=== PATIENT | male | born 1935 | race Caucasian/White ===

== ENCOUNTER → 2018-02-22 08:34 | Outpatient (BNVA) | payer MEDICARE, SELFPAY | PROVIDERS: PCP Nurse Practitioner Family; Visit Provider Nurse Practitioner Adult Health | DX: G30.9 Alzheimer's disease, unspecified (principal) | CPT/HCPCS: 99213 ==

== ENCOUNTER 2018-03-18 11:01 | Emergency (ER) | payer MEDICARE, SELFPAY ==
[2018-03-18] VITALS (40 sets, daily range): BP systolic 114–146; BP diastolic 63–77; PULSE 57–75; RESP 9–40; TEMP 36.4; O2SAT 94–98
--- NOTE | 2018-03-18 11:17 | W.ED.GENAD ---
Discharge Plan Disposition Patient Disposition: HOME Condition: Stable Discharge Details Chief Complaint: Chest Pain Clinical Impression: Chest pain Primary Care Provider: Magali Jones ED Provider: Bing Song Home Meds and New Rx's Prescriptions: Continue lansoprazole [Prevacid] 15 mg capsule,delayed release(DR/EC) 15 mg PO DAILY RF: 0 calcium carbonate [Tums] 200 mg calcium (500 mg) tablet,chewable 200 mg PO BID RF: 0 turmeric (bulk) [Curcumin] 95 % powder MC RF: 0 lansoprazole [Prevacid] 15 MG capsule,delayed release(DR/EC) 15 mg PO DAILY RF: 0 multivitamin [Daily Multi-Vitamin] 1 EACH tablet 1 ea PO DAILY RF: 0 donepezil 10 MG tablet 10 mg PO DAILY Qty: 90 RF: 3 Varicella-Zoster Ge/As01b/Pf [Shingrix Vial Kit] 50 MCG INJ 50 mcg IM ONCE Qty: 1 RF: 1 aspirin [Aspir-81] 81 MG tablet,delayed release (DR/EC) 81 mg PO DAILY RF: 0 glucosamine freeman 2KCl-chondroit [Glucosamine Sulf-Chondroitin] 1 EACH capsule 1 ea PO DAILY RF: 0 saw palmto frt xtr-zinc [place] [Saw [place] Extract (w-zinc)] 1 EACH capsule 450 ea PO DAILY RF: 0 acetaminophen [Pain Relief Regular Strength] 325 MG tablet 650 mg PO PRN PRNRF: 0 lansoprazole [Prevacid] 15 mg Capsule,Delayed Release(Dr/Ec) 15 mg PO DAILY RF: 0 Discharge Instructions Instructions: Chest Pain (ED) Additional Instructions: Please keep appointment for stress test on Wednesday at 1:45PM. You have follow up to discuss results with primary care on Wednesday at 9:30AM. Please avoid physical exertion, no shoveling. If you develop increased pain, shortness of breath, difficulty breathing, nausea/vomiting or other new/worsening symptoms please seek care immediately once again. PLease call your director [employer] to schedule follow up as soon as possible. Referrals: Magali Jones, [employer] [Primary Care Provider] - Medical Decision Making Patient is an 82 year old male, accompanied by his , with c/c of chest pressure. He reprots that pressure is mild, has been constant for the past 2 weeks and worsens with exertion. REprots that he presents today as my caught me. His reports that she noted him to be pressing on his chest while he was shoveling, this was approximately 1 hour prior to arrival. He states that his discomfort increases with exertion but that his discomfort is still very mild even during this time, feels like a tennis ball hit my chest. Patient has hx of sick sinus syndrome, has pacer in place. Also has history of dementia, ZHOU, skin malignancy, gerd, alzheimers. He takes daily ASA 81mg, reports he took this this morning. reports that he had not voiced his discomfort prior to today. 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 He denies any associated symptoms, even with exertion, including numbness, tingling, lightheadedness, nausea or radiating discomfort. Denies back pain. Exam is significant for bruising to the right side of his chest, patient denies any trauma. No pain with palpation of the chest wall. Lungs are clear. RRR, no murmurs, rubs or gallops noted. He denies history of CAD. Plan to obtain EKG, lbas, cxr. EKG reviewed by Dr. Stark. NSR rate 75. Pacer spikes noted. She advises no acute ischemic changes noted. Compared to previous. Labs without significant abnormality. Troponin <0.02. CXR reviewed by myself with no acute process noted, was able to compare to previous. Discussed with the patient and his . His symptoms are difficult to attribute completely to cardiac etiology as he reports it is so constant even with rest. However, I am concerned that his dementia may be making history difficult to obtain. For this reason, and that his pain did spike approximately 1 hour prior to arrival, we will perform a repeat troponin. His reports he has had stress test previousy but is unsure when this occurred. Typically is seen by cardiology at [facility], will call and consult with them. Was unable to speak with the patient's director [employer]. However, I did speak with Dr. Mendez who is covering for the cardiology group at [facility] where patient typically receives his care. He advised the patient is low risk given his history. Advised that with the unchanged EKG, normal troponin, he did not recommend a second troponin. We discussed admission and at this point, he did not advise this is necessary. He is also questioning with the patient's dementia and age if a stress test is necessary if the patient would want to undergo intervention. I will discuss this further with the patient. By the heart score, patient is considered low risk. While director [employer] did not advise repeat troponin, I feel that with his increase in symptoms this is appropriate and will keep this order. Discussed cardiology concerns with the patient. He advised that he would undergo surgical intervention. I also discussed this with the who is in agreement with this. I have therefore asked our membership secretary to schedule a outpatient stress test for Wednesday. Second troponin remains less than 0.02. I discussed these findings with the patient and his . They live quite local and his assures me that they are able to return immediately with any new or worsening symptoms. They are given strict return precautions. Patient has a stress test scheduled for Wednesday. I also contacted the primary care who will see the patient Wednesday. and patient are comfortable with this plan, are able to follow precautions. They will return with worsening symptoms. All of their questions adn concerns were addressed, they are in agreement with this plan. [facility] General Mode of arrival: ambulatory. Date/Time Provider Initiated Documentation: 03/18/18 11:03. Limitations to Documentation: no limitations. Information obtained by: patient and family. History of Present Illness 82 year old M presents to the emergency department with the chief complaint of chest pressure, described as mild, Quality is described as constant, and is localized to the chest. Patient reports no radiation; denies radiation to back, neck and extremity. Patient started experiencing this week(s) (2) and it has been constant. No relieving factors improve symptom(s), Movement worsens symptoms (worse with exertion such as long walks or shoveling) . Patient notes chest pain; denies confusion, cough, diaphoresis, fever/chills, headaches, nausea/vomiting, rash, shortness of breath and syncope. Patient did receive the following treatments prior to arrival, none Related Data Home Medications Medication Instructions Recorded Confirmed aspirin [Aspir-81] 81 mg PO DAILY 07/04/12 03/18/18 glucosamine freeman 2KCl-chondroit 1 ea PO DAILY 07/04/12 03/18/18 [Glucosamine Sulf-Chondroitin] saw palmto frt xtr-zinc [place] 450 ea PO DAILY 07/04/12 03/18/18 [Saw [place] Extract (w-zinc)] acetaminophen [Pain Relief Regular 650 mg PO PRN PRN 02/24/16 03/18/18 Strength] lansoprazole [Prevacid] 15 mg PO DAILY tab-cap 10/02/16 03/18/18 multivitamin [Daily Multi-Vitamin] 1 ea PO DAILY 04/01/17 03/18/18 donepezil 10 mg PO DAILY #90 tab-cap 05/05/17 03/18/18 calcium carbonate 200 mg calcium 200 mg PO BID tab 02/22/18 03/18/18 (500 mg) chewable tablet lansoprazole 15 mg capsule,delayed 15 mg PO DAILY 02/22/18 03/18/18 release turmeric (bulk) 95 % powder % MC gm 02/22/18 02/22/18 lansoprazole [Prevacid] 15 mg PO DAILY 03/18/18 03/18/18 Previous Rx's Medication Instructions Recorded donepezil 10 mg PO DAILY #90 tab-cap 05/05/17 Allergies Allergy/AdvReac Type Severity Reaction Status Date / Time Penicillins Allergy Intermediate Hives Unverified 03/18/18 11:10 General Stated Complaint: Chest Pain QASIM: 2 Review of Systems Constitutional Reports as per HPI, Denies body ache(s), Denies chills, Denies fatigue, Denies fever(s) and Denies poor appetite ENT Denies dizziness Cardiovascular Reports as per HPI, Reports chest pain, Denies syncope, Denies pedal edema, Denies edema, Denies claudication, Denies leg edema, Denies lightheadedness, Denies palpitations, Denies dyspnea and Denies dyspnea on exertion Respiratory Reports as per HPI, Denies cough, Denies dyspnea and Denies dyspnea on exertion Gastrointestinal Reports as per HPI, Denies abdominal pain, Denies change in stool character, Denies nausea and Denies vomiting Genitourinary Denies system reviewed and no additional complaints, except as docu (denies any change in urinary habits) Musculoskeletal Reports as per HPI Integumentary/Breasts Reports as per HPI and Denies rash Neurologic Reports as per HPI, Denies dizziness and Denies syncope Endocrine Denies fatigue and Denies palpitations PFSH Family History Mother Myocardial infarction Gastric cancer Father Old age Other CAD (coronary artery disease) Medical History Sensorineural hearing loss, bilateral (Chronic 07/02/16) 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) Osteoarthritis of knee (Chronic 07/10/14) ZHOU (obstructive sleep apnea) (Chronic 06/25/17) Nocturia (Acute 04/02/15) Memory loss (Chronic 08/30/12) Thoracic or lumbosacral neuritis or radiculitis, unspecified (Acute 06/19/11) Hx of malignant skin melanoma (Acute 06/19/11) Hx of malignant skin melanoma (Acute 06/19/11) Gastroesophageal reflux disease (Chronic 06/19/11) Gastric polyp (Acute 04/19/13) Male erectile dysfunction, unspecified (Chronic 06/19/11) Degenerative arthritis of knee, bilateral (Chronic 08/28/14) Chest pain, unspecified (Acute 08/30/12) Cardiac pacemaker in situ (Acute 06/19/11) Alzheimer's disease (Chronic 06/25/17) Dementia Social History household members: spouse current occupational status: retired Smoking/Tobacco Use Status: Former Tobacco Use alcohol intake: current alcohol intake frequency: a few times a week Surgical History History of arthroplasty of left knee (Acute 05/21/15) Replacement of total knee joint (11/21/14) Exam Const General: cooperative, healthy appearing, comfortable, no acute distress, well developed and well groomed Nutritional Appearance: average body habitus and well nourished Orientation: alert, awake and oriented x3 (patient, in general, is a good historian but augments secondary to his dementia) [facility] Head: normal to inspection and normocephalic Ears: hearing grossly normal bilaterally Mouth: oral mucosae normal and moist mucous membranes Eyes General: appearance normal, both eyes and all related structures Chest Chest: abnormal inspection of the chest (patient has ecchomosis over the right side of the chest, this is yellowed and does not appear acute. Pacer noted to be implanted in left upper chest) and no localized rib tenderness Resp Effort & Inspection: normal respiratory effort, able to speak in complete sentences and no respiratory distress Auscultation: clear to auscultation bilaterally, no rales, no rhonchi and no wheezes Cardio Rate: regular rate Rhythm: regular rhythm Heart Sounds: S1 normal and S2 normal GI Inspection: normal to inspection, no abdominal wall ecchymosis and non-distended Palpation: soft, no hepatosplenomegaly, no guarding and nontender Auscultation: normal bowel sounds Skin General skin exam: ecchymosis (as above to right side of chest wall) Neuro General: alert, awake and oriented x3 Cognition: normal cognition Speech: speech normal Gait: normal gait Extrem General: normal to inspection, no pedal edema, no calf tenderness and normal gait Psych Appearance: grossly normal and well kempt Mental Status: mental status grossly normal Speech and Movement: speech and movement normal Course Vital Signs Temperature 36.4 C L 03/18/18 11:07 Pulse 73 03/18/18 11:07 Respiratory Rate 18 03/18/18 11:07 Blood Pressure 146/75 H 03/18/18 11:07 Pulse Oximetry 97 03/18/18 11:07 Temperature 36.4 C L 03/18/18 11:07 Temperature Source Temporal Artery Scan 03/18/18 11:07 Pulse 73 03/18/18 11:07 Respiratory Rate 18 03/18/18 11:07 Respiratory Effort 03/18/18 11:11 Respiratory Depth Normal 03/18/18 11:11 Respiratory Pattern Normal 03/18/18 11:11 Blood Pressure 146/75 H 03/18/18 11:07 Blood Pressure Position Sitting 03/18/18 11:07 Pulse Oximetry 97 03/18/18 11:07 Oxygen Delivery Method Room Air 03/18/18 11:07 Oxygen Flow Rate 0 03/18/18 11:07
--- NOTE | 2018-03-18 11:21 | ED.GENADUL_ITS ---
Discharge Plan Disposition Patient Disposition: HOME Condition: Stable Discharge Details Chief Complaint: Chest Pain Clinical Impression: Chest pain Primary Care Provider: Magali Jones ED Provider: Bing Song Home Meds and New Rx's Prescriptions: Continue lansoprazole [Prevacid] 15 mg capsule,delayed release(DR/EC) 15 mg PO DAILY RF: 0 calcium carbonate [Tums] 200 mg calcium (500 mg) tablet,chewable 200 mg PO BID RF: 0 turmeric (bulk) [Curcumin] 95 % powder MC RF: 0 lansoprazole [Prevacid] 15 MG capsule,delayed release(DR/EC) 15 mg PO DAILY RF: 0 multivitamin [Daily Multi-Vitamin] 1 EACH tablet 1 ea PO DAILY RF: 0 donepezil 10 MG tablet 10 mg PO DAILY Qty: 90 RF: 3 Varicella-Zoster Ge/As01b/Pf [Shingrix Vial Kit] 50 MCG INJ 50 mcg IM ONCE Qty: 1 RF: 1 aspirin [Aspir-81] 81 MG tablet,delayed release (DR/EC) 81 mg PO DAILY RF: 0 glucosamine freeman 2KCl-chondroit [Glucosamine Sulf-Chondroitin] 1 EACH capsule 1 ea PO DAILY RF: 0 saw palmto frt xtr-zinc [place] [Saw [place] Extract (w-zinc)] 1 EACH capsule 450 ea PO DAILY RF: 0 acetaminophen [Pain Relief Regular Strength] 325 MG tablet 650 mg PO PRN PRNRF: 0 lansoprazole [Prevacid] 15 mg Capsule,Delayed Release(Dr/Ec) 15 mg PO DAILY RF: 0 Discharge Instructions Instructions: Chest Pain (ED) Additional Instructions: Please keep appointment for stress test on Wednesday at 1:45PM. You have follow up to discuss results with primary care on Wednesday at 9:30AM. Please avoid physical exertion, no shoveling. If you develop increased pain, shortness of breath, difficulty breathing, nausea/vomiting or other new/worsening symptoms please seek care immediately once again. PLease call your hospital staff pharmacist to schedule follow up as soon as possible. Referrals: Magali Jones, EDI COORDINATOR [Primary Care Provider] - Medical Decision Making Patient is an 82 year old male, accompanied by his , with c/c of chest pressure. He reprots that pressure is mild, has been constant for the past 2 weeks and worsens with exertion. REprots that he presents today as my caught me. His reports that she noted him to be pressing on his chest while he was shoveling, this was approximately 1 hour prior to arrival. He states that his discomfort increases with exertion but that his discomfort is still very mild even during this time, feels like a tennis ball hit my chest. Patient has hx of sick sinus syndrome, has pacer in place. Also has history of dementia, ZHOU, skin malignancy, gerd, alzheimers. He takes daily ASA 81mg, reports he took this this morning. reports that he had not voiced his discomfort prior to today. Has hospital staff pharmacist in [place]. He denies any associated symptoms, even with exertion, including numbness, tingling, lightheadedness, nausea or radiating discomfort. Denies back pain. Exam is significant for bruising to the right side of his chest, patient denies any trauma. No pain with palpation of the chest wall. Lungs are clear. RRR, no murmurs, rubs or gallops noted. He denies history of CAD. Plan to obtain EKG, lbas, cxr. EKG reviewed by Dr. Stark. NSR rate 75. Pacer spikes noted. She advises no acute ischemic changes noted. Compared to previous. Labs without significant abnormality. Troponin <0.02. CXR reviewed by myself with no acute process noted, was able to compare to previous. Discussed with the patient and his . His symptoms are difficult to attribute completely to cardiac etiology as he reports it is so constant even with rest. However, I am concerned that his dementia may be making history difficult to obtain. For this reason, and that his pain did spike approximately 1 hour prior to arrival, we will perform a repeat troponin. His reports he has had stress test previousy but is unsure when this occurred. Typically is seen by cardiology at [facility], will call and consult with them. Was unable to speak with the patient's hospital staff pharmacist. However, I did speak with Dr. Mendez who is covering for the cardiology group at [facility] where patient typically receives his care. He advised the patient is low risk given his history. Advised that with the unchanged EKG, normal troponin, he did not recommend a second troponin. We discussed admission and at this point, he did not advise this is necessary. He is also questioning with the patient's dementia and age if a stress test is necessary if the patient would want to undergo intervention. I will discuss this further with the patient. By the heart score, patient is considered low risk. While hospital staff pharmacist did not advise repeat troponin, I feel that with his increase in symptoms this is appropriate and will keep this order. Discussed cardiology concerns with the patient. He advised that he would undergo surgical intervention. I also discussed this with the who is in agreement with this. I have therefore asked our police department secretary to schedule a outpatient stress test for Wednesday. Second troponin remains less than 0.02. I discussed these findings with the patient and his . They live quite local and his assures me that they are able to return immediately with any new or worsening symptoms. They are given strict return precautions. Patient has a stress test scheduled for Wednesday. I also contacted the primary care who will see the patient Wednesday. and patient are comfortable with this plan, are able to follow precautions. They will return with worsening symptoms. All of their questions adn concerns were addressed, they are in agreement with this plan. [facility] General Mode of arrival: ambulatory . Date/Time Provider Initiated Documentation: 03/18/18 11:03 . Limitations to Documentation: no limitations . Information obtained by: patient and family . History of Present Illness 82 year old M presents to the emergency department with the chief complaint of chest pressure, described as mild, Quality is described as constant, and is localized to the chest. Patient reports no radiation; denies radiation to back, neck and extremity. Patient started experiencing this week(s) (2) and it has been constant. No relieving factors improve symptom(s), Movement worsens symptoms (worse with exertion such as long walks or shoveling) . Patient notes chest pain; denies confusion, cough, diaphoresis, fever/chills, headaches, nausea/vomiting, rash, shortness of breath and syncope. Patient did receive the following treatments prior to arrival, none Related Data Home Medications Medication Instructions Recorded Confirmed aspirin [Aspir-81] 81 mg PO DAILY 07/04/12 03/18/18 glucosamine freeman 2KCl-chondroit 1 ea PO DAILY 07/04/12 03/18/18 [Glucosamine Sulf-Chondroitin] saw palmto frt xtr-zinc [place] 450 ea PO DAILY 07/04/12 03/18/18 [Saw [place] Extract (w-zinc)] acetaminophen [Pain Relief Regular 650 mg PO PRN PRN 02/24/16 03/18/18 Strength] lansoprazole [Prevacid] 15 mg PO DAILY tab-cap 10/02/16 03/18/18 multivitamin [Daily Multi-Vitamin] 1 ea PO DAILY 04/01/17 03/18/18 donepezil 10 mg PO DAILY #90 tab-cap 05/05/17 03/18/18 calcium carbonate 200 mg calcium 200 mg PO BID tab 02/22/18 03/18/18 (500 mg) chewable tablet lansoprazole 15 mg capsule,delayed 15 mg PO DAILY 02/22/18 03/18/18 release turmeric (bulk) 95 % powder % MC gm 02/22/18 02/22/18 lansoprazole [Prevacid] 15 mg PO DAILY 03/18/18 03/18/18 Previous Rx's Medication Instructions Recorded donepezil 10 mg PO DAILY #90 tab-cap 05/05/17 Allergies Allergy/AdvReac Type Severity Reaction Status Date / Time Penicillins Allergy Intermediate Hives Unverified 03/18/18 11:10 General Stated Complaint: Chest Pain QASIM: 2 Review of Systems Constitutional Reports as per HPI, Denies body ache(s), Denies chills, Denies fatigue, Denies fever(s) and Denies poor appetite ENT Denies dizziness Cardiovascular Reports as per HPI, Reports chest pain, Denies syncope, Denies pedal edema, Denies edema, Denies claudication, Denies leg edema, Denies lightheadedness, Denies palpitations, Denies dyspnea and Denies dyspnea on exertion Respiratory Reports as per HPI, Denies cough, Denies dyspnea and Denies dyspnea on exertion Gastrointestinal Reports as per HPI, Denies abdominal pain, Denies change in stool character, Denies nausea and Denies vomiting Genitourinary Denies system reviewed and no additional complaints, except as docu (denies any change in urinary habits) Musculoskeletal Reports as per HPI Integumentary/Breasts Reports as per HPI and Denies rash Neurologic Reports as per HPI, Denies dizziness and Denies syncope Endocrine Denies fatigue and Denies palpitations PFSH Family History Mother Myocardial infarction Gastric cancer Father Old age Other CAD (coronary artery disease) Medical History Sensorineural hearing loss, bilateral (Chronic 07/02/16) 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) Osteoarthritis of knee (Chronic 07/10/14) ZHOU (obstructive sleep apnea) (Chronic 06/25/17) Nocturia (Acute 04/02/15) Memory loss (Chronic 08/30/12) Thoracic or lumbosacral neuritis or radiculitis, unspecified (Acute 06/19/11) Hx of malignant skin melanoma (Acute 06/19/11) Hx of malignant skin melanoma (Acute 06/19/11) Gastroesophageal reflux disease (Chronic 06/19/11) Gastric polyp (Acute 04/19/13) Male erectile dysfunction, unspecified (Chronic 06/19/11) Degenerative arthritis of knee, bilateral (Chronic 08/28/14) Chest pain, unspecified (Acute 08/30/12) Cardiac pacemaker in situ (Acute 06/19/11) Alzheimer's disease (Chronic 06/25/17) Dementia Social History household members: spouse current occupational status: retired Smoking/Tobacco Use Status: Former Tobacco Use alcohol intake: current alcohol intake frequency: a few times a week Surgical History History of arthroplasty of left knee (Acute 05/21/15) Replacement of total knee joint (11/21/14) Exam Const General: cooperative, healthy appearing, comfortable, no acute distress, well developed and well groomed Nutritional Appearance: average body habitus and well nourished Orientation: alert, awake and oriented x3 (patient, in general, is a good historian but augments secondary to his dementia) [facility] Head: normal to inspection and normocephalic Ears: hearing grossly normal bilaterally Mouth: oral mucosae normal and moist mucous membranes Eyes General: appearance normal, both eyes and all related structures Chest Chest: abnormal inspection of the chest (patient has ecchomosis over the right side of the chest, this is yellowed and does not appear acute. Pacer noted to be implanted in left upper chest) and no localized rib tenderness Resp Effort & Inspection: normal respiratory effort, able to speak in complete sentences and no respiratory distress Auscultation: clear to auscultation bilaterally, no rales, no rhonchi and no wheezes Cardio Rate: regular rate Rhythm: regular rhythm Heart Sounds: S1 normal and S2 normal GI Inspection: normal to inspection, no abdominal wall ecchymosis and non-distended Palpation: soft, no hepatosplenomegaly, no guarding and nontender Auscultation: normal bowel sounds Skin General skin exam: ecchymosis (as above to right side of chest wall) Neuro General: alert, awake and oriented x3 Cognition: normal cognition Speech: speech normal Gait: normal gait Extrem General: normal to inspection, no pedal edema, no calf tenderness and normal gait Psych Appearance: grossly normal and well kempt Mental Status: mental status grossly normal Speech and Movement: speech and movement normal Course Vital Signs Temperature 36.4 C L 03/18/18 11:07 Pulse 73 03/18/18 11:07 Respiratory Rate 18 03/18/18 11:07 Blood Pressure 146/75 H 03/18/18 11:07 Pulse Oximetry 97 03/18/18 11:07 Temperature 36.4 C L 03/18/18 11:07 Temperature Source Temporal Artery Scan 03/18/18 11:07 Pulse 73 03/18/18 11:07 Respiratory Rate 18 03/18/18 11:07 Respiratory Effort 03/18/18 11:11 Respiratory Depth Normal 03/18/18 11:11 Respiratory Pattern Normal 03/18/18 11:11 Blood Pressure 146/75 H 03/18/18 11:07 Blood Pressure Position Sitting 03/18/18 11:07 Pulse Oximetry 97 03/18/18 11:07 Oxygen Delivery Method Room Air 03/18/18 11:07 Oxygen Flow Rate 0 03/18/18 11:07
[2018-03-18] MEDS: Normal Saline 1,000 ML 125 ML IV (11:25)
--- NOTE | 2018-03-18 11:28 | DI.RAD_ITS ---
SYMPTOMS/DIAGNOSIS: CP CHEST X-RAY, PA AND LATERAL: Comparison is 07/16/17. The heart size and pulmonary vasculature are within normal limits. The pacing wires are stable in position. The lungs are clear. No effusions or pneumothoraces are identified. IMPRESSION: No acute pulmonary process.
[2018-03-18] MEDS: Aspirin 81 MG CHEW 243 MG CH (11:29)
[2018-03-18 11:45] LABS: Abs Immature Grans 0.01 k/cumm (0.0-0.09); Absolute Basophil Count 0.03 k/cumm (0.0-0.2); Absolute Eosinophil Count 0.08 k/cumm (0.0-0.7); Absolute Lymphocyte Count 1.06 k/cumm (1.2-3.4); Absolute Monocyte Count 0.38 k/cumm (0.11-0.7); Absolute Neutrophil Count 4.17 k/cumm (1.2-6.7); Basophils % 0.5; Eosinophils % 1.4; HGB 15.4 g/dL (13.5-17.5); Immature Grans % 0.2; Lymphocytes % 18.5; Mean Corp. HGB Concentration 34.2 g/dL (32.0-36.0); Mean Corpuscular Hemoglobin 32.3 pg (27.0-33.0); Mean Corpuscular Volume 94.3 fL (80-95); Mean Platelet Volume 11.8 fL (8.0-11.0); Monocytes % 6.6; Neutrophils % 72.8; Platelet Count 199 x1000/uL (130-400); RBC 4.77 m/cumm (4.50-6.00); RBC Distribution Width 12.5 % (11.8-14.1); White Blood Cell Count 5.73 k/cumm (4.4-10.8)
[2018-03-18 11:52] LABS: PTT Activated 26.3 sec (21.0-31.4)
[2018-03-18 11:53] LABS: ALT 33 U/L (12-78); AST 28 U/L (15-37); Albumin 4.2 g/dL (3.4-5.0); Alkaline Phosphatase 89 U/L (46-116); Anion Gap 6.4 mmol/L (3-11); BUN 11 mg/dL (7-18); Bilirubin, Total 1.2 mg/dL (0.2-1.0); CO2 32.6 mmol/L (21.0-32.0); CREATININE 0.74 mg/dL (0.70-1.30); Calcium 9.4 mg/dL (8.5-10.1); Chloride 100 mmol/L (98-107); Glucose 103 mg/dL (70-100); Potassium 3.6 mmol/L (3.5-5.1); Sodium 139 mmol/L (136-145); Total Protein 7.7 g/dL (6.4-8.2)
[2018-03-18 11:54] LABS: Troponin I < 0.02 ng/mL (0.00-0.06)
--- NOTE | 2018-03-18 12:53 | NUR.NOTE ---
Pt. aware of plan for repeat Trop at 1430, VSS on the monitor, is in NAD, call so in reach, will monitor.
[2018-03-18 15:13] LABS: Troponin I < 0.02 ng/mL (0.00-0.06)
== END 2018-03-18 15:39 | disposition home or self-care (01) ==
PROVIDERS: Emergency Provider Physician Assistant; PCP Nurse Practitioner Family
DX: R07.89 Other chest pain (principal); I49.5 Sick sinus syndrome; Z95.0 Presence of cardiac pacemaker; G30.9 Alzheimer's disease, unspecified; F02.80 Dementia in other diseases classified elsewhere, unspecified severity, without behavioral disturbance, psychotic disturbance, mood disturbance, and anxiety
CPT/HCPCS: 36415; 80053; 93005; 96360; 96361; 99285; 71046; 83735; 84484; 85025; 85730; 93010; 99284

== ENCOUNTER 2018-03-21 00:21 | Outpatient (CLI) | payer MEDICARE, SELFPAY ==
--- NOTE | 2018-03-21 14:00 | ETT_ITS ---
*[facility]* *[facility]* [address] [place] [address] Stress Electrocardiography Ze protocol Date of study: 03/21/2018 *PATIENT PRESENTATION* Height: 188cm (74in) Blood Pressure: Weight: 84.1kg (185lb) BSA: 2.1m^2 Ordering physician: Bing Song Summary: 1. Stress ECG conclusions: The stress ECG is negative. Ozuna treadmill score: 3. This score predicts a moderate risk of cardiac events. 2. Ventricular ectopy with exercise (triplet) and in recovery (NSVT x 4 beats). Similar sensation of 'turbulence' that he experienced with exertion days before. Developed CP at rest several minutes later. Referred to the ED. Indication: R07.9. History: REASON FOR TESTING: TENSION IN THE CHEST. PT HAD EXPERIENCED CHEST TIGHTNESS WHILE WALKING [place] 2 WEEKS AGO. REST APPEARS TO MAKE THE PRESSURE GO AWAY. PMH: PACEMAKER FOR SICK SINUS SYNDROME, DEMENTIA, ZHOU, SKIN MALIGNANCY, GERD, ALZHEIMERS. FAMILY HX: MOTHER OF ID. SMOKING: QUIT AT AGE 29. 35 PACK YEARS. EXCERCISE: WALKING,SNOWSHOEING,KAYAKING- VERY ACTIVE. Risk factors: Family history of coronary artery disease. Cholesterol: 123mg/dl. HDL: 42mg/dl. LDL: 71mg/dl. Triglycerides: 42mg/dl. ALLERGIES: PENICILLINS MEDICATIONS: TUMERIC POWDER, SAW PALMETTO EXTRACT 450 DAILY, MULTIVITAM DAILY, LANSOPRAZLOE 15 MG DAILY, GLUCOSAMINE SULF-CHONDROITIN 1 DAILY, DONEPEZIL 10 MG DAILYCAQLCUIM CARBONATE 200 MG TID, ASPIRIN 81 MG DAILY, ACETAMINOPHEN 650 MG PRN. Protocol: Ze protocol. Baseline ECG: LAST EKG 03/18/18- ATRIAL PACED, HR 75. TODAY'S EKG-ATRIAL PACED, HR 63, Stress protocol: + +---+ +---+ !Stage !HR !BP (mmHg) !Sat! + +---+ +---+ !Baseline supine !63 !140/78 (99) !---! + +---+ +---+ !Baseline standing !71 !142/52 (82) !---! + +---+ +---+ !Stage I; 1.7mph, 10degrees; 3 min !89 !146/92 (110)!97%! + +---+ +---+ !Stage II; 2.5mph, 12degrees; 3 min!110!154/98 (117)!---! + +---+ +---+ !Recovery; 1 min !121!192/90 (124)!---! + +---+ +---+ !Recovery; 3 min !97 !187/76 (113)!---! + +---+ +---+ !Recovery; 6 min !79 !132/76 (95) !---! + +---+ +---+ * Stress results: The rate-pressure product for the peak heart rate and blood pressure was 42038dv Hg/min. Stress ECG: EXCERCISE TESTING ENDED IN 6 MINS,59 SECS DUE TO FATIGUE. MAX HR WAS 128, 92% OF TARGET, HYPERTENSIVE BLOOD PRESSURE RESPONSE. METS:8.55 ECTOPY: PVC- OCASSIONAL AT FIRST, WITH INCREASING REGULARITY IN RECOVERY PHASE OF TESTING. 4 BEAT NSVT NOTED AT 1:42 OF RECOVERY, BIGEMINY OF PVC'S AT 2:[address] SCHAFFER CALLED TO THE STRESS LAB. ANGINA;PT REPORTED 2/10 CHEST PRESSURE IN STAGE 1 OF EXCERCISE, THEN 3/10 INSTAGE 2. DID FEEL PALPITATIONS WITH PVC'S. ISCHEMIA: NO SIGNIFICANT ST CHANGES NOTED. FUNCTIONAL CA[ACITY: AVERAGE CAPACITY. The stress ECG is negative. Ozuna treadmill score: 3. This score predicts a moderate risk of cardiac events. Study data: Reese Schaffer MD supervised and was readily available during the procedure. This study was interpreted by [facility]. Study status: Routine. Consent: The risks, benefits, and alternatives to the procedure were explained to the patient and informed consent was obtained. Procedure: Initial setup. A baseline ECG was recorded. Surface ECG leads and manual cuff blood pressure measurements were monitored. Heart sounds: Normal. Lung sounds: Normal. Treadmill exercise testing was performed using the Ze protocol. Study completion: The patient tolerated the procedure well and was discharged from the lab. Discharge: The patient left the laboratory in stable condition. Birthdate: Patient birthdate: 1935. Sex: Gender: male. Study date: Study date: 03/21/2018. Study time: 02:00 PM. Electronically signed by Reese Schaffer MD 03/21/2018 17:01
== END 2018-03-21 00:41 ==
PROVIDERS: PCP Nurse Practitioner Family; Visit Provider Physician Assistant
DX: I49.3 Ventricular premature depolarization (principal)
CPT/HCPCS: 93017

== ENCOUNTER 2018-03-21 15:06 | Emergency (ER) | payer MEDICARE, SELFPAY ==
[2018-03-21] VITALS (112 sets, daily range): BP systolic 113–150; BP diastolic 59–80; PULSE 58–80; RESP 8–27; TEMP 36.8–37.6; O2SAT 94–99
--- NOTE | 2018-03-21 15:28 | ED.GENADUL_ITS ---
Discharge Plan Disposition Patient Disposition: HOME Condition: Good Discharge Details Chief Complaint: Chest Pain Clinical Impression: Chronic chest pain Primary Care Provider: Magali Jones ED Provider: Thea Stark Home Meds and New Rx's Prescriptions: New atenolol 25 mg tablet 25 mg PO DAILY Qty: 30 RF: 0 Continue calcium carbonate [Tums] 200 mg calcium (500 mg) tablet,chewable 200 mg PO BID RF: 0 lansoprazole [Prevacid] 15 MG capsule,delayed release(DR/EC) 15 mg PO DAILY RF: 0 multivitamin [Daily Multi-Vitamin] 1 EACH tablet 1 ea PO DAILY RF: 0 donepezil 10 MG tablet 10 mg PO DAILY Qty: 90 RF: 3 Varicella-Zoster Ge/As01b/Pf [Shingrix Vial Kit] 50 MCG INJ 50 mcg IM ONCE Qty: 1 RF: 1 aspirin [Aspir-81] 81 MG tablet,delayed release (DR/EC) 81 mg PO DAILY RF: 0 glucosamine freeman 2KCl-chondroit [Glucosamine Sulf-Chondroitin] 1 EACH capsule 1 ea PO DAILY RF: 0 saw palmto frt xtr-zinc picoli [Saw [place] Extract (w-zinc)] 1 EACH capsule 450 ea PO DAILY RF: 0 acetaminophen [Pain Relief Regular Strength] 325 MG tablet 650 mg PO PRN PRNRF: 0 Discharge Instructions Instructions: Chest Pain (ED), Chronic Pain (ED) Additional Instructions: You will receive a call from radiology regarding follow-up for your nuclear medicine stress test. DO NOT START the beta-isaiah medication ATENOLOL until you discuss with cardiology and after your stress test. Call your pillow filler Dr. Sagar Sawyer at [facility] to schedule follow-up appointment for reevaluation. Return immediately to the emergency department any worsening or new concerning symptoms. Discharge Data Discharge Date/Time-TO BE ENTERED AT DEPARTURE: 03/21/18 20:19 Discharge Physician: Thea Stark Medical Decision Making 82-year-old male with history of pacemaker and Alzheimer's dementia who presents for intermittent chest pain, worse with exertion over the past 2-1/2- weeks. Patient was sent by Dr. Schaffer after developed chest pain and a run of 5 beats of V. tach during stress test today. Dr. Schaffer stated that stress test was negative for ischemia but sent patient for further evaluation due to chest pain. He had recommended a nuclear stress test for this Wednesday. Patient denies any chest pain since arrival to ED. EKG on arrival notes a rate of 63, sinus, first-degree AV block, no acute ST elevation or depression. QTc 413. QRS 126. No acute change compared to previous EKG. 1714 -- d/w cardiology on-call at [facility] -states he is reassured that patient is likely low risk with negative stress test, no EKG changes and negative troponin. Does recommend a second troponin and possibly starting a beta- isaiah. States if family and patient do not feel comfortable with discharge home, can consider admission for nuclear stress test in the next day or 2. This was discussed with patient and at bedside, and would rather patient not be admitted as she does not want to travel to [place]. There are no beds available here. Dr. Schaffer had planned on a nuclear med stress test on Wednesday. Will place this order, check a second troponin. The stress test orders recommend no beta-blockers for 48 hours before stress test. Cardiology on-call at [facility] had recommended a beta-isaiah 25 mg atenolol once daily -we will hold on this at this time due to possible stress test in 2 days. 1999 --second troponin negative. No chest pain since arrival to ED. Patient is requesting to go home. Patient given prescription for atenolol and instructed to not start this until after directed by cardiology after stress test. He was instructed to return here immediately if worse. HPI General Mode of arrival: ambulatory . Date/Time Provider Initiated Documentation: 03/21/18 15:25 . Limitations to Documentation: no limitations . Information obtained by: patient . HPI Narrative: Pt is an 82yo M w/ a h/o Alzheimer's disease, OA, ZHOU, GERD who presents with intermittent chest tightness with exertion for the past 2.5 weeks. Pt was sent here by pillow filler Dr. Schaffer after pt developed chest pain after a treadmill stress test today. Dr. Schaffer called the ED after pt's arrival and stated that the stress test was negative for ischemia but he did have a run of about 5 beats on nonsustained V tach during the test. Dr. Schaffer recommended that pt may need a perfusion nuc med scan or cardiac MRI at some point for further evaluation of ectopy/ishcema. Pt denies any shortness of breath, nausea , vomiting, dizziness. Pt states he has had this pain off and on with exertion for the past 2.5 weeks. Patient was seen here 3 days ago for similar pain after shoveling. He had 2- troponins and was referred for the stress test which he had today. Patient does have a history of Alzheimer's and is mostly a good historian but has some cracks in his memory and did not remember that he took aspirin today. Past medical history: Osteoporosis, obstructive sleep apnea, GERD, Alzheimer's Surgical history: Knee arthroscopy, pacemaker Social history: Denies tobacco, alcohol or drugs Medications: Aspirin, Aricept, Prevacid Allergies: Penicillin PCP Magali Jones Card: Dr. Sagar Sawyer ([facility]) Related Data Home Medications Medication Instructions Recorded Confirmed aspirin [Aspir-81] 81 mg PO DAILY 07/04/12 03/21/18 glucosamine freeman 2KCl-chondroit 1 ea PO DAILY 07/04/12 03/21/18 [Glucosamine Sulf-Chondroitin] saw palmto frt xtr-zinc picoli 450 ea PO DAILY 07/04/12 03/21/18 [Saw [place] Extract (w-zinc)] acetaminophen [Pain Relief Regular 650 mg PO PRN PRN 02/24/16 03/21/18 Strength] lansoprazole [Prevacid] 15 mg PO DAILY tab-cap 10/02/16 03/21/18 multivitamin [Daily Multi-Vitamin] 1 ea PO DAILY 04/01/17 03/21/18 donepezil 10 mg PO DAILY #90 tab-cap 05/05/17 03/21/18 calcium carbonate 200 mg calcium 200 mg PO BID tab 02/22/18 03/21/18 (500 mg) chewable tablet atenolol 25 mg PO DAILY #30 tab 03/21/18 Previous Rx's Medication Instructions Recorded donepezil 10 mg PO DAILY #90 tab-cap 05/05/17 atenolol 25 mg PO DAILY #30 tab 03/21/18 Allergies Allergy/AdvReac Type Severity Reaction Status Date / Time Penicillins Allergy Intermediate Hives Unverified 03/18/18 11:10 General Stated Complaint: Chest Pain QASIM: 2 Review of Systems Review of Systems All systems reviewed & are unremarkable except as noted in HPI and below Constitutional Denies chills, Denies excessive sweating, Denies fatigue, Denies fever(s), Denies weakness and Denies weight loss Eyes Reports system reviewed and no additional complaints, except as docu and Denies blurry vision ENT Denies vertigo, Denies dizziness, Denies otalgia, Denies nasal congestion, Denies sore throat and Denies throat swelling Cardiovascular Reports chest pain, Denies syncope, Denies rapid heart rate and Denies dyspnea Respiratory Denies dyspnea Gastrointestinal Denies abdominal pain, Denies diarrhea and Denies vomiting Genitourinary Denies hematuria, Denies dysuria and Denies flank pain Musculoskeletal Denies back pain and Denies joint swelling Integumentary/Breasts Denies lesions and Denies rash Neurologic Denies behavioral changes, Denies confusion, Denies vertigo, Denies dizziness, Denies syncope and Denies weakness Psychiatric Denies behavioral changes, Denies confusion and Denies depression Endocrine Denies excessive sweating and Denies fatigue Hematologic/Lymphatic Denies easy bruising and Denies lymphadenopathy Allergic/Immunologic Denies throat swelling PFSH Family History Mother Myocardial infarction Gastric cancer Father Old age Other CAD (coronary artery disease) Medical History Sensorineural hearing loss, bilateral (Chronic 07/02/16) 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) Osteoarthritis of knee (Chronic 07/10/14) ZHOU (obstructive sleep apnea) (Chronic 06/25/17) Nocturia (Acute 04/02/15) Memory loss (Chronic 08/30/12) Thoracic or lumbosacral neuritis or radiculitis, unspecified (Acute 06/19/11) Hx of malignant skin melanoma (Acute 06/19/11) Hx of malignant skin melanoma (Acute 06/19/11) Gastroesophageal reflux disease (Chronic 06/19/11) Gastric polyp (Acute 04/19/13) Male erectile dysfunction, unspecified (Chronic 06/19/11) Degenerative arthritis of knee, bilateral (Chronic 08/28/14) Chest pain, unspecified (Acute 08/30/12) Cardiac pacemaker in situ (Acute 06/19/11) Alzheimer's disease (Chronic 06/25/17) Dementia Social History household members: spouse current occupational status: retired Smoking/Tobacco Use Status: Former Tobacco Use alcohol intake: current alcohol intake frequency: a few times a week Surgical History History of arthroplasty of left knee (Acute 05/21/15) Replacement of total knee joint (11/21/14) Exam Const General: cooperative and healthy appearing Orientation: alert and awake HENMT Head: normal to inspection Ears: hearing grossly normal bilaterally and external ears normal General nose exam: external nose normal Face and sinus: normal facial exam Eyes General: appearance normal, both eyes and all related structures Eyelids: eyelids normal EOM: EOM intact bilaterally Neck Neck: normal visual inspection Lymphatic: no lymphadenopathy noted Chest Chest: normal inspection of the chest Resp Effort & Inspection: normal respiratory effort and able to speak in complete sentences Auscultation: clear to auscultation bilaterally Cardio Rate: regular rate Rhythm: regular rhythm GI Inspection: normal to inspection Palpation: soft, not firm, no guarding, no hepatosplenomegaly, no masses and nontender Auscultation: normal bowel sounds Skin General skin exam: no rashes or lesions noted Neuro General: alert and awake Cognition: normal cognition Speech: speech normal Gait: normal gait Motor: muscle tone normal throughout Sensory Exam: no sensory deficits noted Extrem General: normal to inspection, full ROM, normal capillary refill and no edema Psych Appearance: grossly normal Mental Status: mental status grossly normal Speech and Movement: speech and movement normal Affect: normal affect Thought Process: normal Course Vital Signs Temperature 98.2 F 03/21/18 15:13 Pulse 80 03/21/18 15:13 Respiratory Rate 16 03/21/18 15:13 Pulse Oximetry 97 03/21/18 15:13 Temperature 98.2 F 03/21/18 15:13 Temperature Source Skin 03/21/18 15:13 Pulse 80 03/21/18 15:13 Respiratory Rate 16 03/21/18 15:13 Respiratory Effort 03/21/18 15:17 Blood Pressure Position Sitting 03/21/18 15:13 Pulse Oximetry 97 03/21/18 15:13 Oxygen Delivery Method Room Air 03/21/18 15:13 Oxygen Flow Rate 0 03/21/18 15:13
[2018-03-21 15:40] LABS: Abs Immature Grans 0.01 k/cumm (0.0-0.09); Absolute Basophil Count 0.03 k/cumm (0.0-0.2); Absolute Eosinophil Count 0.12 k/cumm (0.0-0.7); Absolute Lymphocyte Count 1.36 k/cumm (1.2-3.4); Absolute Monocyte Count 0.35 k/cumm (0.11-0.7); Absolute Neutrophil Count 4.46 k/cumm (1.2-6.7); Basophils % 0.5; Eosinophils % 1.9; HCT 43.4 % (40.0-50.0); HGB 15.1 g/dL (13.5-17.5); Immature Grans % 0.2; Lymphocytes % 21.5; Mean Corp. HGB Concentration 34.8 g/dL (32.0-36.0); Mean Corpuscular Hemoglobin 32.3 pg (27.0-33.0); Mean Corpuscular Volume 92.9 fL (80-95); Mean Platelet Volume 11.6 fL (8.0-11.0); Monocytes % 5.5; Neutrophils % 70.4; Platelet Count 199 x1000/uL (130-400); RBC 4.67 m/cumm (4.50-6.00); RBC Distribution Width 12.5 % (11.8-14.1); White Blood Cell Count 6.33 k/cumm (4.4-10.8)
[2018-03-21 15:58] LABS: ALT 30 U/L (12-78); AST 25 U/L (15-37); Albumin 4.3 g/dL (3.4-5.0); Alkaline Phosphatase 80 U/L (46-116); Anion Gap 5.9 mmol/L (3-11); BUN 12 mg/dL (7-18); CO2 32.1 mmol/L (21.0-32.0); Calcium 9.5 mg/dL (8.5-10.1); Chloride 102 mmol/L (98-107); Glucose 106 mg/dL (70-100); Magnesium 1.8 mg/dL (1.8-2.4); Potassium 4.1 mmol/L (3.5-5.1); Sodium 140 mmol/L (136-145); Total Protein 7.5 g/dL (6.4-8.2)
--- NOTE | 2018-03-21 16:02 | DI.RAD_ITS ---
SYMPTOM/DIAGNOSIS: CHEST PAIN, R/O ACUTE DISEASE PA AND LATERAL CHEST: The lungs are well expanded and free of infiltrate. There is no pleural effusion. The heart is not enlarged. Cardiac pacing wires are noted in stable position when compared with prior images. The hilar structures, mediastinum and tracheal air column are intact. There is mild unfolding of the thoracic aorta. SUMMARY: No evidence of acute cardiopulmonary disease.
[2018-03-21 16:15] LABS: Troponin I < 0.02 ng/mL (0.00-0.06)
[2018-03-21 16:35] LABS: NT-proBNP 190 pg/mL
--- NOTE | 2018-03-21 17:00 | DI.VRAD_ITS ---
EXAM: XR Chest, 2 Views EXAM DATE/TIME: 03/21/2018 3:27 PM CLINICAL HISTORY: 82 years old, male; Pain; Other: Chest pain R/O acute disease TECHNIQUE: XR of the chest, 2 views. COMPARISON: CR XR CHEST 2V PA LATERAL 03/18/2018 11:38 AM FINDINGS: Tubes, catheters and devices: Left approach dual lead pacemaker. Lungs: Unremarkable. No consolidation. Pleural space: Unremarkable. No pleural effusion. No pneumothorax. Heart/Mediastinum: Unremarkable. No cardiomegaly. Bones/joints: Degenerative changes of the spine. IMPRESSION: No acute abnormality. Dictated and Authenticated by: Eligio Cedneo MD. Ordering:KELSY COSTA MD
[2018-03-21 18:36] LABS: Troponin I < 0.02 ng/mL (0.00-0.06)
== END 2018-03-21 20:19 | disposition home or self-care (01) ==
PROVIDERS: Emergency Provider Physician Assistant; PCP Nurse Practitioner Family
DX: R07.9 Chest pain, unspecified (principal); G89.29 Other chronic pain
CPT/HCPCS: 36415; 80053; 93005; 99285; 71046; 83735; 83880; 84484; 85025; 93010

== ENCOUNTER 2018-03-23 00:16 | Outpatient (CLI) | payer MEDICARE, SELFPAY ==
--- NOTE | 2018-03-23 09:45 | MERGEMPI_ITS ---
*[facility]* *[facility]* [address] [place] [address] Myocardial Perfusion Imaging - SPECT Ze protocol Date of study: 03/23/2018 *PATIENT PRESENTATION* Height: 188cm (74in) Blood Pressure: Weight: 84.1kg (185lb) BSA: 2.1m^2 Referring physician: Filiberto Cowart Ordering physician: Thea Stark Impressions: Positive stress test after maximal exercise with reproduction of symptoms. Stress-induced perfusion defect with drop in ejection fraction. Summary: 1. Myocardial perfusion imaging: There is a moderate sized, mildly intense, fully reversible defect involving the lateral wall(s). This suggests moderate ischemia in the distribution of left anterior descending or left circumflex coronary artery. 2. The calculated left ventricular ejection fraction after stress: 47%. LV global systolic function is mildly reduced. Diffuse left ventricular regional motion abnormalities. 3. Stress ECG conclusions: The stress ECG is positive. Frequent ventricular ectopy. 4. Stress: The target heart rate was achieved. The heart rate response to stress is normal. There is a normal resting blood pressure with a hypertensive response to stress. Stress-induced chest pain which resolved spontaneously. Exercise capacity is average for age (10 METS). Recommendations: 1. Cardiac catheterization should be performed. 2. Patient has appointment with his portfolio analyst today. Indication: R07.09. History: Patient's presenting symptoms: atypical angina. REASON FOR VISIT: PATIENT EXPERIENCED CHEST TIGHTNESS WHILE WALKING [place] 2 WEEKS AGO, RESOLVED WITH REST. SEEN FOR REGULAR STRESS TEST 03/21/18. PATIENT WITH INCREASING ECTOPY DURING RECOVERY, THEN REPORTED ONSET OF CHEST PAIN. DR. PERSAUD CONSULTED AND PATIENT SENT TO ER. NO CHANGES OBSERVED ON EKG, TROPONINS NEGATIVE X 2. TODAY PATIENT AND REPORT A NEARLY CONSTANT DULL, ACHEY CHEST PAIN. UNABLE TO DESCRIBE INTENSITY OR DURATION OF CHEST DISCOMFORT. PATIENT STATES HE NOTICES IT'S THERE, BUT NOT BAD. PATIENT HAS FOLLOW UP APPOINTMENT WITH APPLICATIONS TRAINER AT [facility] THIS AFTERNOON. STRESS TEST 03/21/18: STRESS ECG NEGATIVE. VENTRICULAR ECTOPY (TRIPLETS, NSVT) DURING RECOVERY. PATIENT EXPERIENCED CHEST PAIN SEVERAL MINUTES AFTER EXERCISE. PAST MEDICAL HISTORY: PACEMAKER FOR SICK SINUS SYNDROME. DEMENTIA. SKIN MALIGNANCY. GERD. ALZHEIMERS. BILATERAL HEARING LOSS. OSTEOARTHRITIS. PLANTAR FIBROMATOSIS. BPH. CHEST PAIN. FAMILY HISTORY: MOTHER OF MYOCARDIAL INFARCTION. SMOKING STATUS: 35 PACK YEAR HISTORY, QUIT AT AGE 29. EXERCISE ROUTINE: WALKING, SNOWSHOEING, KAYAKING. Risk factors: Cholesterol: 123mg/dl. HDL: 42mg/dl. LDL: 71mg/dl. Triglycerides: 41mg/dl. ALLERGIES: PENICILLINS. MEDICATIONS: SAW PALMETTO EXTRACT 450MG, DAILY. MULTIVAMIN, DAILY. LANSOPRAZOLE 15MG, DAILY. GLUCOSAMINE CHONDROITIN, DAILY. DONEPEZIL 10MG, DAILY. CALCIUM CARBONATE 200MG, BID. ASPIRIN 81MG, DAILY. ATENOLOL 25MG, DAILY (TO START AFTER STRESS TEST). Imaging Technique: Protocol: Ze protocol. Acquisition: Gated SPECT; 1 day - rest/stress. The patient was imaged in the supine position. Attenuation correction used. Isotope administration: - Rest. Tc[99m]-sestamibi. Dose: 10.4mCi. Injection time: 10:00 AM. Injection to stress time: 00:45. - Stress. Tc[99m]-sestamibi. Dose: 34mCi. Injection time: 12:20 PM. 1-2 min before end of exercise Baseline ECG: ATRIAL PACED RHYTHM, OCCASIONAL PREMATURE VENTRICULAR CONTRACTION. HEART RATE 63 BPM. Atrial paced rhythm with 1degrees AV block. Stress protocol: + +---+ + + + !Stage !HR !BP (mmHg) !Rhythm !Symptoms ! + +---+ + + + !Baseline supine !63 !142/68 (93) !Paced, ! ! ! ! ! !occasional ! ! ! ! ! !PVC's ! ! + +---+ + + + !Baseline standing !67 !138/72 (94) ! !2 out of 10 chest ! ! ! ! ! !discomfort ! + +---+ + + + !Stage I; 1.7mph, !86 !158/108 ! ! ! !10degrees; 3 min ! !(125) ! ! ! + +---+ + + + !Stage II; 2.5mph, !113!182/110 ! ! ! !12degrees; 3 min ! !(134) ! ! ! + +---+ + + + !Peak stress !136! ! ! ! + +---+ + + + !Recovery; 1 min !119!198/100 ! ! ! ! ! !(133) ! ! ! + +---+ + + + !Recovery; 3 min !97 !208/90 (129)! !Resolved ! + +---+ + + + !Recovery; 6 min !81 !162/78 (106)! ! ! + +---+ + + + * Stress results: Maximal heart rate during stress was 136bpm (98% of maximal predicted heart rate). The maximal predicted heart rate was 139bpm. The target heart rate was achieved. The heart rate response to stress is normal. There is a normal resting blood pressure with a hypertensive response to stress. The rate-pressure product for the peak heart rate and blood pressure was 13254zi Hg/min. Stress-induced chest pain which resolved spontaneously. Exercise capacity is average for age (10 METS). Stress ECG: TREADMILL PORTION OF MPI STRESS TEST ENDED IN 8MIN DUE TO PATIENT FATIGUE. APPROPRIATE HEART RATE RESPONSE TO EXERCISE. HYPERTENSIVE RESPONSE TO EXERCISE. MAX HEART RATE 136 BPM, 97% OF TARGET. APPROXIMATE METS ACHEIVED 10.13. OCCASIONAL PVCS AT BASELINE, INCREASING IN FREQUENCY DURING EXERCISE. SMALL BURSTS OF BIGEMINY AND PAIRS THROUGHOUT EXERCISE AND RECOVERY. 3 BEAT RUN OF VTACH NOTED DURING STAGE 3 OF EXERCISE AND DURING BEGINNING OF RECOVERY. 2/10 CHEST PRESSURE REPORTED DURING STAGE 2 OF ZE PROTOCOL, RESOLVING BY MINUTE 4 OF RECOVERY. UPWARD SLOPING ST SEGMENT DEPRESSION NOTED IN LEADS V3, V4, AND V5 AT MINUTE 5 OF EXERCISE AND RETURNING TO BASELINE BY MINUTE 3 RECOVERY. AVERAGE FUNCTIONAL CAPACITY. The stress ECG is positive. Stress ECG change: horizontal depression. Severity: 1.0-1.5mm. In lead groups: V4, V5 and V6. Frequent ventricular ectopy. [place] treadmill score: -4. This score predicts a moderate risk of cardiac events. Myocardial perfusion: Imaging information: gated. The image quality was good. Left ventricular size is normal. There is a moderate sized, mildly intense, fully reversible defect involving the lateral wall(s). This suggests moderate ischemia in the distribution of left anterior descending or left circumflex coronary artery. Ventricular Function (Wall Motion): The calculated left ventricular ejection fraction after stress: 47%. LV global systolic function is mildly reduced. Diffuse left ventricular regional motion abnormalities. Study data: Filiberto Cowart MD supervised and was readily available during the procedure. This study was interpreted by [facility]. Study status: Routine. Consent: The risks, benefits, and alternatives to the procedure were explained to the patient and informed consent was obtained. Procedure: Initial setup. A baseline ECG was recorded. Surface ECG leads and manual cuff blood pressure measurements were monitored. Heart sounds: Normal. Lung sounds: Normal. Treadmill exercise testing was performed using the Ze protocol. Study completion: All catheters inserted during the procedure were removed. The patient tolerated the procedure well and was discharged from the lab. Discharge: The patient left the laboratory in stable condition. Birthdate: Patient birthdate: 1935. Sex: Gender: male. Study date: Study date: 03/23/2018. Study time: 12:30 PM. Signature Documentation: - The imaging portion of this study was interpreted by Nuclear Cytogenetic Technologist Filiberto Cowart MD. - The imaging portion of this study was interpreted by Nuclear Radiologist Wilfred Moran MD. - The Stress ECG portion of this study was interpreted by Filiberto Cowart MD. Electronically signed by Filiberto Cowart 03/23/2018 14:01
== END 2018-03-23 00:36 ==
PROVIDERS: PCP Nurse Practitioner Family; Visit Provider Physician Assistant
DX: R94.30 Abnormal result of cardiovascular function study, unspecified (principal); R07.9 Chest pain, unspecified; I49.5 Sick sinus syndrome; Z95.0 Presence of cardiac pacemaker; Z82.49 Family history of ischemic heart disease and other diseases of the circulatory system
CPT/HCPCS: 78452; 93016; 93018; 93017

== ENCOUNTER 2018-04-01 00:57 | Outpatient (CLI) | payer MEDICARE, SELFPAY ==
[2018-04-01 10:05] LABS: BUN 10 mg/dL (7-18); Calcium 9.6 mg/dL (8.5-10.1); Chloride 101 mmol/L (98-107); Glucose 116 mg/dL (70-100); Potassium 4.2 mmol/L (3.5-5.1); Sodium 140 mmol/L (136-145)
== END 2018-04-01 01:17 ==
PROVIDERS: PCP Nurse Practitioner Family; Visit Provider Nurse Practitioner Family
DX: I10 Essential (primary) hypertension (principal)
CPT/HCPCS: 36415; 80048

== ENCOUNTER → 2018-06-01 08:31 | Outpatient (BNVA) | payer MEDICARE, SELFPAY | PROVIDERS: PCP Nurse Practitioner Family; Visit Provider Nurse Practitioner Adult Health | DX: G30.9 Alzheimer's disease, unspecified (principal); F02.80 Dementia in other diseases classified elsewhere, unspecified severity, without behavioral disturbance, psychotic disturbance, mood disturbance, and anxiety | CPT/HCPCS: 99213 ==

== ENCOUNTER → 2018-07-29 12:57 | Outpatient (BNVA) | payer MEDICARE, SELFPAY | PROVIDERS: PCP Nurse Practitioner Family; Visit Provider Urology | DX: R35.1 Nocturia (principal) | CPT/HCPCS: 99213 ==

== ENCOUNTER 2019-02-20 09:10 | Outpatient (CLI) | payer MEDICARE, SELFPAY | END 2019-02-20 09:30 | PROVIDERS: PCP Nurse Practitioner Family; Visit Provider Nurse Practitioner Adult Health | DX: G30.9 Alzheimer's disease, unspecified (principal); F02.80 Dementia in other diseases classified elsewhere, unspecified severity, without behavioral disturbance, psychotic disturbance, mood disturbance, and anxiety | CPT/HCPCS: 99213 ==

== ENCOUNTER 2019-03-09 08:23 | Outpatient (CLI) | payer MEDICARE, SELFPAY ==
[2019-03-09 11:42] LABS: Anion Gap 6.6 mmol/L (3-11); BUN 19 mg/dL (7-18); CO2 30.4 mmol/L (21.0-32.0); CREATININE 0.85 mg/dL (0.70-1.30); Chloride 103 mmol/L (98-107); Glucose 92 mg/dL (70-100); Potassium 4.6 mmol/L (3.5-5.1); Sodium 140 mmol/L (136-145)
[2019-03-09 11:46] LABS: Hemoglobin A1C 6.1 % (4.5-6.2)
== END 2019-03-09 08:43 ==
PROVIDERS: PCP Nurse Practitioner Family; Visit Provider Nurse Practitioner Family
DX: R73.01 Impaired fasting glucose (principal); Z51.81 Encounter for therapeutic drug level monitoring
CPT/HCPCS: 36415; 80048; 83036

== ENCOUNTER → 2019-08-22 07:32 | Outpatient (BNVA) | payer MEDICARE, SELFPAY | PROVIDERS: PCP Nurse Practitioner Family; Referring Provider Nurse Practitioner Family; Visit Provider Nurse Practitioner Adult Health | DX: G30.9 Alzheimer's disease, unspecified (principal); F02.80 Dementia in other diseases classified elsewhere, unspecified severity, without behavioral disturbance, psychotic disturbance, mood disturbance, and anxiety | CPT/HCPCS: 99213; 99441 ==

== ENCOUNTER → 2020-02-20 09:24 | Outpatient (BNVA) | payer MEDICARE, SELFPAY | PROVIDERS: PCP Nurse Practitioner Family; Referring Provider Nurse Practitioner Family; Visit Provider Nurse Practitioner Adult Health | DX: G30.9 Alzheimer's disease, unspecified (principal); F02.80 Dementia in other diseases classified elsewhere, unspecified severity, without behavioral disturbance, psychotic disturbance, mood disturbance, and anxiety | CPT/HCPCS: 99213 ==

== ENCOUNTER 2020-03-19 01:56 | Outpatient (CLI) | payer MEDICARE, SELFPAY ==
[2020-03-19 13:08] LABS: Anion Gap 5.8 mmol/L (3-11); BUN 17 mg/dL (7-18); CO2 31.2 mmol/L (21.0-32.0); CREATININE 0.82 mg/dL (0.70-1.30); Calcium 9.3 mg/dL (8.5-10.1); Chloride 105 mmol/L (98-107); Glucose 87 mg/dL (74-106); Potassium 4.4 mmol/L (3.5-5.1); Sodium 142 mmol/L (136-145)
== END 2020-03-19 02:16 ==
PROVIDERS: PCP Nurse Practitioner Family; Visit Provider Nurse Practitioner Family
DX: R73.01 Impaired fasting glucose (principal); Z51.81 Encounter for therapeutic drug level monitoring
CPT/HCPCS: 36415; 80048; 83036

== ENCOUNTER → 2020-05-07 07:42 | Outpatient (BNVA) | payer MEDICARE, SELFPAY | PROVIDERS: PCP Nurse Practitioner Family; Referring Provider Nurse Practitioner Family; Visit Provider Nurse Practitioner Adult Health | DX: G30.9 Alzheimer's disease, unspecified (principal); F02.80 Dementia in other diseases classified elsewhere, unspecified severity, without behavioral disturbance, psychotic disturbance, mood disturbance, and anxiety | CPT/HCPCS: 99213; 99441 ==

== ENCOUNTER → 2020-08-27 07:28 | Outpatient (BNVA) | payer MEDICARE, SELFPAY | PROVIDERS: PCP Nurse Practitioner Family; Referring Provider Nurse Practitioner Family; Visit Provider Nurse Practitioner Adult Health | DX: G30.9 Alzheimer's disease, unspecified (principal); F02.80 Dementia in other diseases classified elsewhere, unspecified severity, without behavioral disturbance, psychotic disturbance, mood disturbance, and anxiety | CPT/HCPCS: 99212; 99443 ==

== ENCOUNTER → 2020-12-12 13:04 | Outpatient (BNVA) | payer MEDICARE, SELFPAY | PROVIDERS: PCP Nurse Practitioner Family; Referring Provider Nurse Practitioner Family; Visit Provider Nurse Practitioner Adult Health | DX: G30.9 Alzheimer's disease, unspecified (principal); F02.80 Dementia in other diseases classified elsewhere, unspecified severity, without behavioral disturbance, psychotic disturbance, mood disturbance, and anxiety | CPT/HCPCS: 99213; 99215; G2212 ==

== ENCOUNTER 2021-02-01 19:05 | Emergency (ER) | payer MEDICARE, SELFPAY ==
[2021-02-01 19:08] VITALS: BP 126/59; PULSE 66; RESP 16; TEMP 36.4; O2SAT 99
--- NOTE | 2021-02-01 19:24 | ED.GENADUL_ITS ---
Discharge Plan Disposition Patient Disposition: HOME Condition: Stable Discharge Details Clinical Impression: Laceration of scalp Primary Care Provider: Magali Jones ED Provider: Reese Smith Home Meds and New Rx's Prescriptions: Continued lisinopril 2.5 mg tablet 2.5 mg PO DAILY Qty: 90 RF: 3 memantine [Namenda] 10 mg tablet 10 mg PO BID Qty: 180 RF: 3 Ensure Original 0.04-1.05 gram-kcal/mL liquid 237 ml PO BID Qty: 180 RF: 0 lansoprazole [Prevacid] 15 MG capsule,delayed release(DR/EC) 15 mg PO DAILY RF: 0 multivitamin [Daily Multi-Vitamin] 1 EACH tablet 1 ea PO DAILY RF: 0 donepezil 10 mg tablet 10 mg PO DAILY Qty: 90 RF: 3 quetiapine [Seroquel] 25 mg tablet 25 mg PO BID Qty: 60 RF: 5 Saw [place] Extract (w-zinc) 1 EACH capsule 450 ea PO DAILY RF: 0 acetaminophen [Pain Relief Regular Strength] 325 MG tablet 650 mg PO PRN PRNRF: 0 Discharge Instructions Instructions: Skin Adhesive Care (ED) Additional Instructions: if you have spreading redness, yellow/white discharge, severe pain or persistent vomit return to the emergency department Medical Decision Making 85 yo male comes in with scalp laceration. He was sitting in a chair and fell back as he tripped trying to stand and hit his posterior head on a chair. No loc and had no preceding symptoms tot he fall. HAs no pain and denies n/v, neck pain, chest pain, or abdominal pain. He has a 0.5cm superficial laceration to the posterior scalp that I closed with skin adhesive after cleaning, no palpable skull deformities or hematomas, caox4 with CN II-XII intact. Discussed with pt CT but given the benign mechanism and lack of other traumatic findings do not feel it is likely he will have significant tbi and he also prefers to defer CT. Return precautions given Differential Diagnosis Differential Diagnosis: laceration, abrasion HPI General Mode of arrival: ambulatory . Date/Time Provider Initiated Documentation: 02/01/21 19:10 . Limitations to Documentation: no limitations . Information obtained by: patient . History of Present Illness 85 year old M presents to the emergency department with the chief complaint of scalp laceration, described as moderate, Quality is described as aching, and it has been constant. No relieving factors improve symptom(s), No exacerbating factors reported . Patient notes no other symptoms.. Related Data Home Medications Medication Instructions Recorded Confirmed Saw [place] Extract (w-zinc) 450 ea PO DAILY 07/04/12 02/01/21 acetaminophen [Pain Relief Regular 650 mg PO PRN PRN 02/24/16 02/01/21 Strength] lansoprazole [Prevacid] 15 mg PO DAILY tab-cap 10/02/16 02/01/21 multivitamin [Daily Multi-Vitamin] 1 ea PO DAILY 04/01/17 02/01/21 food supplemt, lactose-reduced 237 ml PO BID #180 unit 11/28/18 02/01/21 0.04 gram-1.05 kcal/mL oral liquid lisinopril 2.5 mg tablet 2.5 mg PO DAILY #90 tab-cap 03/18/20 02/01/21 memantine 10 mg tablet 10 mg PO BID #180 tab 05/07/20 02/01/21 donepezil 10 mg tablet 10 mg PO DAILY #90 tab-cap 05/28/20 02/01/21 quetiapine 25 mg tablet 25 mg PO BID #60 tab 01/13/21 02/01/21 Previous Rx's Medication Instructions Recorded food supplemt, lactose-reduced 237 ml PO BID #180 unit 11/28/18 0.04 gram-1.05 kcal/mL oral liquid lisinopril 2.5 mg tablet 2.5 mg PO DAILY #90 tab-cap 03/18/20 memantine 10 mg tablet 10 mg PO BID #180 tab 05/07/20 donepezil 10 mg tablet 10 mg PO DAILY #90 tab-cap 05/28/20 quetiapine 25 mg tablet 25 mg PO BID #60 tab 01/13/21 Allergies Allergy/AdvReac Type Severity Reaction Status Date / Time Penicillins Allergy Intermediate Hives Unverified 02/01/21 19:14 General Stated Complaint: Laceration QASIM: 3 Review of Systems All systems reviewed & are unremarkable except as noted in HPI and below Constitutional Constitutional: Denies chills, Denies fever(s) and Denies weakness Cardiovascular Cardiovascular: Denies chest pain and Denies dyspnea Respiratory Respiratory: Denies cough and Denies dyspnea Gastrointestinal Gastrointestinal: Denies abdominal pain, Denies nausea and Denies vomiting Musculoskeletal Musculoskeletal: Denies joint swelling Neurologic Neurologic: Denies weakness [facility] Medical History Alzheimer's disease (06/25/17) 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 Cardiology (Dr. 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 Gastroesophageal reflux disease (06/19/11) Heart failure with reduced ejection fraction Followed by 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) Sensorineural hearing loss, bilateral (07/02/16) Thoracic or lumbosacral neuritis or radiculitis, unspecified (06/19/11) Unstable angina [facility] Cardiology Surgical History History of arthroplasty of left knee (05/21/15) Replacement of total knee joint (11/21/14) LEFT KNEE/DREISBACH RIGHT TOTAL KNEE 03/04/16 S/P cardiac cath 03/25/18 [facility]-absent coronary disease on [facility] Family History Mother Myocardial infarction Gastric cancer Heart disease Father Old age Brother Cancer Other CAD (coronary artery disease) Social History Smoking/Tobacco Use Status: Former Tobacco Use Tobacco: How many years used: 15 Smoking risk assessment performed?: Yes Alcohol Intake: current Alcohol Intake frequency: a few times a week Drug use: Never Substance use type: does not use Caregiver/Support person: No Household members: spouse Number of Children: 2 Communication Needs: Hard of Hearing Pets and animals: Yes Pets and animals: dog(s) Sexually active: Yes Do you think of yourself as: straight/heterosexual Current gender identity: male What is your relationship status?: How often do you talk on the phone with friends or family?: three or more times per week How often do you get together with friends or relatives?: three or more times per week How often do you attend synagogue or jainism services?: 4 or more times per year Do you belong to any clubs or organized social groups?: no Panel score (0-1 are the most socially isolated patients): 3 What type of physical activity do you participate in: walking, bicycling and other Details: Kayaking Duration: 30-45 minutes/day Frequency: daily Latonya/Synagogue: [employer] Special latonya needs: No Seatbelt use: always Helmet use: Yes Drive intox or ride w/intox sales route driver helper: No Do you feel safe at home: Yes Do you feel safe in your relationship?: Yes Exam Const General: no acute distress Orientation: alert [facility] Head: normocephalic Ears: external ears normal General nose exam: external nose normal Mouth: moist mucous membranes Eyes General: appearance normal, both eyes and all related structures Neck Neck: normal visual inspection Resp Effort & Inspection: normal respiratory effort and able to speak in complete sentences Cardio Rate: regular rate Skin General skin exam: no rashes or lesions noted Neuro General: patient alert and patient oriented x3 Extrem General: normal to inspection Psych Mental Status: mental status grossly normal Course Vital Signs Vital signs: Vital Signs Temperature 36.4 C L 02/01/21 19:08 Pulse 66 02/01/21 19:08 Respiratory Rate 16 02/01/21 19:08 Blood Pressure 126/59 L 02/01/21 19:08 Pulse Oximetry 99 02/01/21 19:08 Temperature 36.4 C L 02/01/21 19:08 Temperature Source Temporal Artery Scan 02/01/21 19:08 Pulse 66 02/01/21 19:08 Respiratory Rate 16 02/01/21 19:08 Respiratory Effort Non-Labored 02/01/21 19:18 Blood Pressure 126/59 L 02/01/21 19:08 Blood Pressure Position Sitting 02/01/21 19:08 Pulse Oximetry 99 02/01/21 19:08 Oxygen Delivery Method Room Air 02/01/21 19:08 Oxygen Flow Rate 0 02/01/21 19:08 Pain Level 0 02/01/21 19:08
[2021-02-01 19:46] VITALS: BP 106/62; PULSE 65; RESP 16; TEMP 36.7; O2SAT 98
--- NOTE | 2021-02-01 19:48 | NUR.NOTE ---
Nursing Note: Dressing applied to wound with non-stick gauze and des.
== END 2021-02-01 19:40 | disposition home or self-care (01) ==
PROVIDERS: Emergency Provider Emergency Medicine; PCP Nurse Practitioner Family
DX: S01.01XA Laceration without foreign body of scalp, initial encounter (principal); W01.190A Fall on same level from slipping, tripping and stumbling with subsequent striking against furniture, initial encounter
CPT/HCPCS: 12001

== ENCOUNTER → 2021-02-13 08:40 | Outpatient (BNVA) | payer MEDICARE, SELFPAY | PROVIDERS: PCP Nurse Practitioner Family; Referring Provider Nurse Practitioner Family; Visit Provider Psychiatry & Neurology Neurology | DX: G30.9 Alzheimer's disease, unspecified (principal); F02.80 Dementia in other diseases classified elsewhere, unspecified severity, without behavioral disturbance, psychotic disturbance, mood disturbance, and anxiety; Z91.83 Wandering in diseases classified elsewhere | CPT/HCPCS: 99213 ==

== ENCOUNTER 2021-04-03 02:28 | Outpatient (CLI) | payer MEDICARE, SELFPAY ==
[2021-04-03 10:58] LABS: Anion Gap 6.5 mmol/L (3-11); BUN 20 mg/dL (7-18); CO2 33.5 mmol/L (21.0-32.0); Calcium 9.4 mg/dL (8.5-10.1); Chloride 102 mmol/L (98-107); Glucose 124 mg/dL (74-106); Potassium 3.7 mmol/L (3.5-5.1); Sodium 142 mmol/L (136-145)
== END 2021-04-03 02:29 | disposition home or self-care (01) ==
LOC: LBO 02:28
PROVIDERS: PCP Nurse Practitioner Family; Visit Provider Nurse Practitioner Family
DX: Z51.81 Encounter for therapeutic drug level monitoring (principal)
CPT/HCPCS: 36415; 80048

== ENCOUNTER → 2021-04-08 09:45 | Outpatient (BNVA) | payer MEDICARE, SELFPAY | PROVIDERS: PCP Nurse Practitioner Family; Referring Provider Nurse Practitioner Family; Visit Provider Psychiatry & Neurology Neurology | DX: G30.9 Alzheimer's disease, unspecified (principal); F02.80 Dementia in other diseases classified elsewhere, unspecified severity, without behavioral disturbance, psychotic disturbance, mood disturbance, and anxiety | CPT/HCPCS: 99213 ==

== ENCOUNTER → 2021-05-22 13:56 | Outpatient (BNVA) | payer MEDICARE, SELFPAY | PROVIDERS: PCP Nurse Practitioner Family; Referring Provider Nurse Practitioner Family; Visit Provider Urology | DX: R35.0 Frequency of micturition (principal); R35.1 Nocturia | CPT/HCPCS: 81003; 99214 ==

== ENCOUNTER 2021-05-22 15:56 | Outpatient (REF) | payer MEDICARE, SELFPAY | END 2021-05-22 15:57 | disposition home or self-care (01) | LOC: LBN 15:56 | PROVIDERS: PCP Nurse Practitioner Family; Visit Provider Urology | DX: R35.0 Frequency of micturition (principal) | CPT/HCPCS: 87077; 87086; 87186 ==

== ENCOUNTER → 2021-06-10 13:27 | Outpatient (BNVA) | payer MEDICARE, SELFPAY | PROVIDERS: PCP Nurse Practitioner Family; Visit Provider Nurse Practitioner Adult Health | DX: F03.91 Unspecified dementia, unspecified severity, with behavioral disturbance (principal); R45.1 Restlessness and agitation; F29 Unspecified psychosis not due to a substance or known physiological condition | CPT/HCPCS: 99213; 99214 ==

== ENCOUNTER → 2021-07-08 14:25 | Outpatient (BNVA) | payer MEDICARE, SELFPAY | PROVIDERS: PCP Nurse Practitioner Family; Visit Provider Urology | DX: Z87.898 Personal history of other specified conditions (principal); R35.0 Frequency of micturition | CPT/HCPCS: 81003; 99214 ==

== ENCOUNTER → 2021-08-13 12:59 | Outpatient (BNVA) | payer MEDICARE, SELFPAY | PROVIDERS: PCP Nurse Practitioner Family; Visit Provider Nurse Practitioner Adult Health | DX: F22 Delusional disorders (principal); G30.9 Alzheimer's disease, unspecified; F02.80 Dementia in other diseases classified elsewhere, unspecified severity, without behavioral disturbance, psychotic disturbance, mood disturbance, and anxiety | CPT/HCPCS: 99213 ==

== ENCOUNTER → 2021-10-03 14:24 | Outpatient (BNVA) | payer MEDICARE, SELFPAY | PROVIDERS: PCP Nurse Practitioner Family; Referring Provider Nurse Practitioner Family; Visit Provider Urology | DX: N40.1 Benign prostatic hyperplasia with lower urinary tract symptoms (principal); R35.1 Nocturia; R35.0 Frequency of micturition; N13.8 Other obstructive and reflux uropathy | CPT/HCPCS: 81003; 99214 ==